=== PATIENT | female | born 1985 | race Caucasian/White ===

== ENCOUNTER 2017-10-27 15:45 | Emergency (ER) | payer OTHER ==
[~2017-10-27] VITALS: Ht 162.6 cm; Wt 244.9 kg
== END 2017-10-27 18:15 | disposition home or self-care (01) ==
LOC: ED 15:45
DX: N93.9 Abnormal uterine and vaginal bleeding, unspecified (principal); Z87.891 Personal history of nicotine dependence; Z88.6 Allergy status to analgesic agent; Z88.5 Allergy status to narcotic agent
CPT/HCPCS: 81001; 84703; 99283

== ENCOUNTER 2017-11-26 13:03 | Emergency (ER) | payer SELFPAY ==
[~2017-11-26] VITALS: Ht 162.6 cm; Wt 244.9 kg
[2017-11-26] MEDS ORDERED: ORTHO-NOVUM1 EAC1 PO (15:41)
== END 2017-11-26 15:49 | disposition home or self-care (01) ==
LOC: ED 13:03
DX: N93.8 Other specified abnormal uterine and vaginal bleeding (principal); Z87.891 Personal history of nicotine dependence; Z88.5 Allergy status to narcotic agent; Z88.8 Allergy status to other drugs, medicaments and biological substances
CPT/HCPCS: 36415; 76830; 76856; 80053; 84703; 85025; 99284

== ENCOUNTER 2018-06-24 19:33 | Emergency (ER) | payer OTHER ==
[~2018-06-24] VITALS: Ht 162.6 cm; Wt 247.2 kg
[~2018-06-24 19:33] MED LIST: ORTHO-NOVUM1 EAC1 PO
--- OUTSIDE RECORDS SUMMARY | 2018-06-24 19:38 | XMS ---
PreManage Notification: HAY DOMINIQUE Security Urologist Physician Events No recent Security Events currently on file CRITERIA MET - Group Notification CARE PROVIDERS There are no care providers on record at this time. [facility] has no Care Guidelines for this patient. [facility] VISIT COUNT (12 MO.) 3 AVELINO Arredondo TOTAL 3 NOTE: Visits indicate total known visits. ED/C VISIT TRACKING (12 MO.) 06/24/2018 19:33 [facility] [place] TYPE: Emergency COMPLAINT: - L LEG PAIN/NO INJURY 11/26/2017 13:04 [facility] [place] TYPE: Emergency COMPLAINT: - VAGINAL BLEED DIAGNOSES: - Other specified abnormal uterine and vaginal bleeding - Allergy status to other drugs, medicaments and biological substances status - Allergy status to narcotic agent status - Personal history of nicotine dependence 10/27/2017 15:46 [facility] [place] TYPE: Emergency COMPLAINT: - VAGINAL BLEEDING/CRAMPING DIAGNOSES: - Allergy status to narcotic agent status - Personal history of nicotine dependence - Allergy status to analgesic agent status - Abnormal uterine and vaginal bleeding, unspecified INPATIENT VISIT TRACKING (12 MO.) No inpatient visits to display in this time frame [email or web address]
[2018-06-24] MEDS ORDERED: TRAMADOL HCL50 MG PO (20:31)
[2018-06-24] MEDS ORDERED: CEPHALEXIN500 MG PO (20:31)
[2018-06-24] MEDS ORDERED: BACTRIM DS TAB1 EACH PO (20:31)
== END 2018-06-24 20:40 | disposition home or self-care (01) ==
LOC: ED 19:33
DX: L03.116 Cellulitis of left lower limb (principal); Z87.891 Personal history of nicotine dependence; Z88.5 Allergy status to narcotic agent; Z88.8 Allergy status to other drugs, medicaments and biological substances
CPT/HCPCS: 99283